=== PATIENT | male | born 1945 | race Caucasian/White ===

== ENCOUNTER 2022-02-27 09:55 | Emergency (ER) | payer OTHER ==
[2022-02-27 10:45] LABS: #Monocytes 1.1 10x3/uL (0.0-1.1); #Neutrophils 6.2 10x3/uL (1.5-8.4); %Basophils 0.3 % (0.0-2.0); %Eosinophils 0.2 % (0.0-6.0); %Lymphocytes 16.3 % (18.0-47.0); %Monocytes 12.3 % (0.0-10.0); %Neutrophils 70.4 % (40.0-75.0); Hemoglobin 12.7 g/dL (13.5-17.5); Mean Corpuscular HGB CONC 33.9 g/dL (32.0-36.0); Mean Corpuscular Hemoglobin 31.8 pg (27.0-33.0); Mean Corpuscular Volume 93.8 fl (81.2-95.1); Mean Platelet Volume 9.8 fl (7.4-10.4); Platelet Count 307 10x3/uL (150-450); White Blood Cell (WBC) Count 8.8 10x3/uL (3.5-10.5)
[2022-02-27 10:58] LABS: ALT (SGPT) 56 U/L (8-55); AST (SGOT) 147 U/L (5-34); Alkaline Phosphatase 58 U/L (40-110); Anion Gap 15 mmol/L (10-20); BUN (Urea Nitrogen) 35 mg/dL (8.4-25.7); Bilirubin, Total 1.2 mg/dL (0.2-1.2); Calc. Creatinine Clearance 0 mL/min (70-130); Calcium 9.2 mg/dL (7.8-10.44); Carbon Dioxide 22 mmol/L (23-31); Chloride 105 mmol/L (98-107); Estimated GFR 75; Globulin 2.1 g/dL (2.4-3.5); Glucose 85 mg/dL (83-110); Potassium 4.1 mmol/L (3.5-5.1); Protein, Total 6.1 g/dL (5.8-8.1); Sodium 138 mmol/L (136-145)
[2022-02-27 11:22] LABS: CKMB 82.2 ng/mL (0-6.6)
[2022-02-27 11:47] LABS: SARS-CoV-2 NAA Rapid Test Not Detected (NotDetected)
== END 2022-02-27 20:53 | disposition short-term general hospital (02) ==
LOC: EEVIPCON 09:55 → CSHERS 09:55
DX: R53.1 Weakness (principal); R77.8 Other specified abnormalities of plasma proteins; G20 Parkinson's disease; Z20.822 Contact with and (suspected) exposure to COVID-19; I10 Essential (primary) hypertension; Z79.899 Other long term (current) drug therapy
CPT/HCPCS: 36415; 36416; 70450; 80053; 82553; 84484; 85025; 93005; U0002